=== PATIENT | male | born 1965 | race Two or more races ===

== ENCOUNTER 2024-02-10 21:55 | Emergency (ER) | payer BC ==
[~2024-02-10] VITALS: Ht 172.7 cm; Wt 81.6 kg
[2024-02-11] MEDS ORDERED: HYOSCYAMINE SULFATE 0.125 MG TAB.SUBL SL STA (00:11)
[2024-02-11] MEDS ORDERED: FAMOTIDINE/PF 20 MG/2 ML VIAL IV PUSH STA (00:12)
[2024-02-11] MEDS ORDERED: PROMETHAZINE HCL 50 MG/ML AMPUL IM STA (00:12)
[2024-02-11] MEDS ORDERED: LACTOBACILLUS ACIDOPHILUS 1 CAP CAP PO STA (00:12)
[2024-02-11] MEDS ORDERED: 0.9 % SODIUM CHLORIDE 1,000 ML IV ONE (00:15)
[2024-02-11] MEDS ORDERED: HYOSCYAMINE SULFATE 0.125 MG TAB.SUBL ONE (00:16)
[2024-02-11] MEDS ORDERED: PROMETHAZINE HCL 50 MG/ML AMPUL IM ONE (00:16)
[2024-02-11] MEDS ORDERED: LACTOBACILLUS ACIDOPHILUS 1 CAP CAP PO ONE (00:17)
[2024-02-11] MEDS ORDERED: FAMOTIDINE/PF 20 MG/2 ML VIAL ONE (00:17)
[2024-02-11 01:08] LABS: CALCIUM 9.4 mg/dL (8.5-10.1); CREATININE SERUM 0.9 mg/dL (0.70-1.30); POTASSIUM 4.49 mEq/L (3.5-5.1)
[2024-02-11 01:29] LABS: GFR 86.67; HEMATOCRIT 44.5 % (39.0-48.0); HEMOGLOBIN 14.9 g/dL (13-16.00); MEAN CELL VOLUME 86.3 fL (80.0-100.00); MEAN CORPUSCULAR HGB CONC 33.6 g/dl (32.0-36.0); PLATELET COUNT 215 K/uL (150-450); RED BLOOD COUNT 5.15 M/uL (4.00-6.00); RED CELL DISTRIBUTION WIDTH 12.5 % (11.5-14.5)
[2024-02-11 02:58] LABS: URINE APPEARANCE Clear; URINE BILIRRUBIN Negative (NEGATIVE); URINE BLOOD Small; URINE COLOR Yellow; URINE GLUCOSE Negative (NEGATIVE); URINE KETONE Trace (NEGATIVE); URINE LEUKOCYTE Negative; URINE NITRATE Negative; URINE PROTEIN 30 (NEGATIVE); URINE UROBILINOGEN 0.2 E.U./dl
[2024-02-11 03:00] LABS: URINE BACTERIA 17.6 uL (0.0-1933); URINE EPITHELIAL CELLS 1.8 uL (0.0-38.8); URINE RBC 235.9 uL (0.0-20.8); URINE WBC 3.3 uL (0.0-23.2)
[2024-02-11] MEDS ORDERED: INTESTINEX680 M2 PO (03:24)
[2024-02-11] MEDS ORDERED: LEVSIN/SL0.125 MG SL (03:24)
[2024-02-11] MEDS ORDERED: CIPRO500 MG PO (03:24)
[2024-02-11] MEDS ORDERED: PEPCID40 MG PO (03:24)
[2024-02-11] MEDS ORDERED: ONDANSETRON ODT8 MG PO (03:24)
== END 2024-02-11 03:50 ==
LOC: ER 21:56
PROVIDERS: General Practice
DX: R11.10 Vomiting, unspecified (principal); R19.7 Diarrhea, unspecified